=== PATIENT | male | born 1965 | race Hispanic/Latino ===

== ENCOUNTER 2018-05-15 12:10 | Emergency (ER) | payer BC, OTHER | END 2018-05-15 14:27 | disposition home or self-care (01) | LOC: ERS 12:10 | DX: T24.222A Burn of second degree of left knee, initial encounter (principal); T24.121A Burn of first degree of right knee, initial encounter; T22.10XA Burn of first degree of shoulder and upper limb, except wrist and hand, unspecified site, initial encounter; Z87.891 Personal history of nicotine dependence; X19.XXXA Contact with other heat and hot substances, initial encounter | CPT/HCPCS: 16020 ==

== ENCOUNTER 2018-09-24 15:57 | Outpatient (CLI) | payer BC ==
--- NOTE | 2018-09-24 19:21 | RAD ---
RIGHT SHOULDER RADIOGRAPHS 09/24/18 PROVIDED CLINICAL HISTORY: Right shoulder pain. FINDINGS: There is no evidence for fracture or other acute osseous abnormality. Subacromial space appears prese rved. The visualized right lung field appears clear. Acromioclavicular joint appears unremarkable. IMPRESSION: Unremarkable right shoulder radiographs. POS: [id number]
== END 2018-09-24 15:58 | disposition home or self-care (01) ==
LOC: BICRAD 15:57
PROVIDERS: ATTEND Family Medicine
DX: M25.511 Pain in right shoulder (principal)